=== PATIENT | female | born 1955 | race Caucasian/White ===

== ENCOUNTER → 2018-09-10 | Outpatient (REF) ==
[2018-09-10 14:13] LABS: C-REACTIVE PROTEIN 1.7 mg/dL (0.0-0.9)
[2018-09-10 14:41] LABS: THYROID STIMULATING HORMONE 2.73 uIU/mL (0.465-4.680)
== END ==
LOC: ZLAB.WCH 13:56
PROVIDERS: Family Medicine
DX: Z01.89 Encounter for other specified special examinations (principal)

== ENCOUNTER → 2018-11-13 | Day surgery (SDC) | payer BC, OTHER ==
[2018-11-13] VITALS (8 sets, daily range): BP systolic 81–146; BP diastolic 46–65; PULSE 67–76; TEMP 98.6–98.9
[~2018-11-13] VITALS: Ht 167.6 cm; Wt 101.6 kg
[~2018-11-13] MED LIST: 00186-0370-20 IH; ALBUTEROL0.83 MG/ML IH; ASPIRIN E.C. 8181 MG PO; CLARITIN 1010 MG/TAB PO; FLONASEALLERGY NS; FOLTANX PO; GLUCOPHAGE XR500 M1 PO; HUMALOG100 U/ML SQ; IRON TABLETS325 MG PO; LANTUS100 U/ML SQ; LIPITOR 40MG TA40 MG PO; NORCO 325 MG-51 TAB PO; PROAIR HFA0.09 MG/AC IH; UBIQUINOL PO; ULTRAM 50MG TAB50 MG PO; VITAMIN C500 MG PO; VITAMIN D 50,1.25 MG PO; ZESTRIL 20MG TA20 MG PO; ZETIA 10MG TAB10 MG PO
--- NOTE | 2018-11-13 12:54 | NUR ---
PRIOR TO SURGERY PATIENT RECEIVED ICG 12.5MG IV . ANESTHESIA INFORMED OF BLOOD SUGAR 83, NO NEW ORDERS.
--- NOTE | 2018-11-13 15:10 | NUR ---
TO RM PER CART FROM PACU. DROWSY BUT ANSWERS QUESTIONS COHERENTLY. C/O FEELING QUEEZY, NOT DENIES NAUEA. C/O FEELING SORE, BUT DENIES PAIN MED AT THIS TIME. 02 AT 3L PER NC WITH SATS 93%. INCISIONS COVERED WITH SWIFE SET, CLEAN DRY AND INTACT. AND FATHER AT BEDSIDE.
--- NOTE | 2018-11-13 15:25 | NUR ---
SLIGHTLY MORE AWAKE AND RECEIVED WATER. TAKING A FEW SIPS.
--- NOTE | 2018-11-13 15:40 | NUR ---
02 SAT 95%ON 2L TALKING WITH FAMILY ENCOURAGED TO PASS GAS
--- NOTE | 2018-11-13 16:00 | NUR ---
SAT UP IN BED AND TOLERATED WELL C/O INCREASED PAIN UPON MOVEMENT.
--- NOTE | 2018-11-13 16:15 | NUR ---
RECEIVED NORCO 1 TAB FOR C/O ABDOMINAL PAIN 11/26. RECEIVED CRACKERS
--- NOTE | 2018-11-13 16:30 | NUR ---
STATED PAIN 3-4/10 AND DENIES NAUSEA AT THIS TIME.
--- NOTE | 2018-11-13 16:45 | NUR ---
PATIENT SLEEPING QUIETLY
--- NOTE | 2018-11-13 17:00 | NUR ---
PATIENT STATED SHE FEELS SO TIRED AND WANTED TO SLEEP A LITTLE LONGER. YEPEZ SET OVER SITES CLEAN DRY INTACT IV L HAND PATENT
--- NOTE | 2018-11-13 17:30 | NUR ---
UP AMBULATED TO BATHROOM WITH ASSIST OF NURSING STAFF AND . VOIDED AND TOLERATED WELL
--- NOTE | 2018-11-13 18:05 | NUR ---
RECEIVED DISCHARGE INSTRUCTIONS AND VERBALIZED UNDERSTANDING. DISCONTINUED IV AND INT ASSISTING PATIENT DRESSED.
--- NOTE | 2018-11-13 18:20 | NUR ---
DISCHARGED PER WC BY NURSING STAFF TO PRIVATE CAR IN CARE OF
== END ==
LOC: SDCO 10:49
DX: K80.10 Calculus of gallbladder with chronic cholecystitis without obstruction (principal); E11.40 Type 2 diabetes mellitus with diabetic neuropathy, unspecified; D64.9 Anemia, unspecified; I10 Essential (primary) hypertension; E78.00 Pure hypercholesterolemia, unspecified; J45.909 Unspecified asthma, uncomplicated; E66.9 Obesity, unspecified; Z68.36 Body mass index [BMI] 36.0-36.9, adult; Z82.49 Family history of ischemic heart disease and other diseases of the circulatory system; Z83.3 Family history of diabetes mellitus; Z80.0 Family history of malignant neoplasm of digestive organs; Z82.3 Family history of stroke; Z80.8 Family history of malignant neoplasm of other organs or systems; Z88.1 Allergy status to other antibiotic agents; Z88.0 Allergy status to penicillin; Z88.2 Allergy status to sulfonamides; Z88.8 Allergy status to other drugs, medicaments and biological substances; Z79.82 Long term (current) use of aspirin; Z79.4 Long term (current) use of insulin; Z79.51 Long term (current) use of inhaled steroids; G47.33 Obstructive sleep apnea (adult) (pediatric); E78.5 Hyperlipidemia, unspecified
CPT/HCPCS: J2250; J2405; J2704; J3010; J7030